=== PATIENT | male | born 1955 | race Caucasian/White ===

== ENCOUNTER 2016-09-02 05:02 | Emergency (ER) | payer MEDICARE ==
[2016-09-02] MEDS ORDERED: LIDOCAINE 2% VISCOUS SOLN 20 ML UDCUP PO ONE (06:28)
[2016-09-02] MEDS ORDERED: METOCLOPRAMIDE HCL ORAL SOLN 10 MG/10 ML UDCUP PO ONE (06:28)
[2016-09-02] MEDS ORDERED: MAG HYDROX/AL HYDROX/SIMETH SUSP 30 ML UDCUP PO ONE (06:28)
[2016-09-02 06:35] LABS: ABSOLUTE EOSINOPHILS # (AUTO) 0.1 10^3/uL (0.0-0.6); ABSOLUTE LYMPHOCYTES (AUTO) 0.7 10^3/uL (0.5-4.7); ABSOLUTE MONOCYTES (AUTO) 0.6 10^3/uL (0.1-1.4); ABSOLUTE NEUT (AUTO) 1.8 10^3/uL (1.7-8.2); BASOPHILS % (AUTO) 1.4 % (0-2); EOSINOPHILS % (AUTO) 2.6 % (0-6); HEMATOCRIT 37.2 % (37.9-51.0); HEMOGLOBIN 12.2 g/dL (13.5-17.0); HGB HCT DIFFERENCE -0.6; MEAN CORPUSCULAR HEMOGLOBIN 26.6 pg (27.0-33.4); MEAN CORPUSCULAR HGB CONC 32.8 g/dL (32.0-36.0); MEAN CORPUSCULAR VOLUME 81 fl (80-97); RED BLOOD COUNT 4.58 10^6/uL (4.35-5.55); RED CELL DISTRIBUTION WIDTH 14.3 % (11.5-14.0); WHITE BLOOD COUNT 3.2 10^3/uL (4.0-10.5)
[2016-09-02 06:40] LABS: PROTHROMBIN TIME 12.8 SEC (11.4-15.4)
[2016-09-02 06:42] LABS: ALANINE AMINOTRANSFERASE 31 U/L (21-72); ALBUMIN 3.4 g/dL (3.5-5.0); ALKALINE PHOSPHATASE 91 U/L (38-126); ANION GAP 13 (5-19); ASPARTATE AMINO TRANSFERASE 20 U/L (17-59); BILIRUBIN,TOTAL 0.3 mg/dL (0.2-1.3); BLOOD UREA NITROGEN 51 mg/dL (7-20); CALCIUM 9.1 mg/dL (8.4-10.2); CARBON DIOXIDE 28 mmol/L (22-30); CHLORIDE 94 mmol/L (98-107); CREATINE KINASE 61 U/L (55-170); CREATININE RESULT 2.11 mg/dL (0.52-1.25); GLUCOSE 391 mg/dL (75-110); LIPASE 103.6 U/L (23-300); POTASSIUM 4.3 mmol/L (3.6-5.0); SODIUM 134.5 mmol/L (137-145); TOTAL PROTEIN 6.3 g/dL (6.3-8.2)
[2016-09-02 06:54] LABS: CREATINE KINASE MB 0.51 ng/mL (<4.55); TROPONIN I 0.028 ng/mL
[2016-09-02 07:00] LABS: VENOUS BLOOD BASE EXCESS 1.7 mmol/L; VENOUS BLOOD HCO3 27.2 mmol/L (20-32); VENOUS BLOOD PCO2 46.2 mmHg (35-63); VENOUS BLOOD PH 7.39 (7.30-7.42)
[2016-09-02] MEDS ORDERED: NORMAL SALINE 1000 ML 500 ML IV ONE ×2 (07:17→08:42)
[2016-09-02] MEDS ORDERED: IPRATROPIUM/ALBUTEROL 0.5-2.5 MG/3 ML AMPUL NEB ONE (07:32)
[2016-09-02] MEDS ORDERED: OSELTAMIVIR PHOSPHATE 6 MG/1 ML SUSP 60 ML PO ONE (07:33)
--- NOTE | 2016-09-02 08:47 | EKG REPORT ---
SEVERITY:- OTHERWISE NORMAL ECG - SINUS RHYTHM ATRIAL PREMATURE COMPLEX : Confirmed by: Osmar Hart MD 02-Sep-2016 08:46:56
[2016-09-02] MEDS ORDERED: ALBUTEROL SULFATE HFA (90 MCG/PUFF) 8 GM MDI (1 MDI/ER DISP) IH ONE (10:16)
--- NOTE | 2016-09-02 10:17 | ER Document Report ---
ED General - General Chief Complaint: Sore Throat Stated Complaint: SORE THROAT,EAR PAIN TRAVEL OUTSIDE OF THE [place] IN LAST 30 DAYS: No - HPI Patient complains to provider of: throat pain ear pain feeling unwell Notes: Patient coming in for throat pain here pain feeling unwell information states started last 3 days. Patient states since recent travel from the [place] [facility] to the [facility] area. Patient has a history of a renal transplant some years ago patient is also on blood pressure medication. Otherwise patient is not very useful spars past medical history denies any fevers chills nausea vomiting. Patient with a possible near syncopal episode in triage according to nursing documentation. - Related Data Allergies/Adverse Reactions: No Known Allergies Allergy (Unverified 09/02/16 05:05) Past Medical History - Social History Smoking Status: Never Smoker Chew tobacco use (# tins/day): No Frequency of alcohol use: None Drug Abuse: None Family History: Reviewed & Not Pertinent Patient has suicidal ideation: No Renal/ Medical History: Denies: Hx Peritoneal Dialysis Review of Systems - Review of Systems Constitutional: No symptoms reported EENT: Eye pain, Throat pain Cardiovascular: Syncope Respiratory: No symptoms reported Gastrointestinal: No symptoms reported Genitourinary: No symptoms reported Male Genitourinary: No symptoms reported Musculoskeletal: No symptoms reported Skin: No symptoms reported Hematologic/Lymphatic: No symptoms reported Neurological/Psychological: No symptoms reported -: Yes All other systems reviewed and negative Physical Exam - Vital signs Vitals: Temp Pulse Resp BP Pulse Ox 97.8 F 64 20 133/56 H 93 09/02/16 05:12 09/02/16 05:12 09/02/16 05:12 09/02/16 05:12 09/02/16 05:12 Interpretation: Normal - General General appearance: Appears well, Alert - HEENT Head: Normocephalic, Atraumatic Eyes: Normal Conjunctiva: Normal Cornea: Normal Extraocular movements intact: Yes Eyelashes: Normal Pupils: PERRL Ears: Normal External canal: Normal Tympanic membrane: Normal Sinus: Normal Nasal: Normal Pharynx: Normal Neck: Normal - Respiratory Respiratory status: No respiratory distress Chest status: Nontender Breath sounds: Normal Chest palpation: Normal - Cardiovascular Rhythm: Regular Heart sounds: Normal auscultation Murmur: No - Abdominal Inspection: Normal Distension: No distension Bowel sounds: Normal Tenderness: Nontender Organomegaly: No organomegaly - Back Back: Normal, Nontender - Extremities General upper extremity: Normal inspection, Nontender, Normal color, Normal ROM , Normal temperature General lower extremity: Normal inspection, Nontender, Normal color, Normal ROM , Normal temperature, Normal weight bearing. No: Becky's sign - Neurological Neuro grossly intact: Yes Cognition: Normal Orientation: AAOx4 [place] Coma Scale Eye Opening: Spontaneous Desiree Coma Scale Verbal: Oriented [place] Coma Scale Motor: Obeys Commands Desiree Coma Scale Total: 15 Speech: Normal Motor strength normal: LUE, RUE, LLE, RLE Sensory: Normal - Psychological Associated symptoms: Normal affect, Normal mood - Skin Skin Temperature: Warm Skin Moisture: Dry Skin Color: Normal Course - Re-evaluation Re-evalutation: 09/02/16 12:25 Patient's workup today shows that he has influenza. Patient initially was orthostatic. After liter fluid patient feeling much better. Patient was ambulated around the ER no signs of hypoxia. Patient upon reevaluation stating that he still feels bad but better donated came into the ER. At this time does not seen criteria need for admission. Patient is has renal insufficiency patient is unaware if this is new or old. Possibly due to dehydration possibly due to the patient's kidney transplant. We are unable at this time. Obtain any old records from the patient's hospital as that the medical record office is closed. Patient states he will like to be discharged. At this time patient stable for discharge - Vital Signs Vital signs: Temp Pulse Resp BP Pulse Ox 97.8 F 73 15 183/86 H 98 09/02/16 05:12 09/02/16 07:54 09/02/16 09:01 09/02/16 09:01 09/02/16 09:01 - Laboratory Result Diagrams: 09/02/16 05:29 09/02/16 05:29 Laboratory results interpreted by me: 09/02/16 09/02/16 09/02/16 05:16 05:29 05:29 WBC 3.2 L Hgb 12.2 L Hct 37.2 L MCH 26.6 L RDW 14.3 H Monocytes % 19.0 H Sodium 134.5 L Chloride 94 L BUN 51 H Creatinine 2.11 H Est GFR ( Amer) 39 L Est GFR (Non-Af Amer) 32 L Glucose 391 H POC Glucose 380 H Albumin 3.4 L Discharge - Discharge Clinical Impression: Influenza B, Dehydration Condition: Good Disposition: HOME, SELF-CARE Instructions: Influenza ([facility]) [id number], Sore Throat ([facility]), Oral Narcotic Medication ([facility]) Additional Instructions: Examination today shows that your dehydrated and you also have influenza B. We will start you on Tamiflu. Please take as directed . I will give you medication for your throat pain. Please make sure you drink plenty water to stay hydrated Please use the inhaler that we gave you here in ER 2 puffs every 4 hours Prescriptions: Hydrocodone Bit/Acetaminophen [Hydrocodon-Acetaminophen 5-325] 1 each PO Q6 #20 tablet Oseltamivir Phosphate [Tamiflu 6 mg/1 ml Susp 60 ml] 30 mg PO BID #1 bottle Forms: Return to Work
[2016-09-02 10:52] VITALS: BP 135/71
== END 2016-09-02 10:41 | disposition home or self-care (01) ==
LOC: ER 05:02
DX: J11.1 Influenza due to unidentified influenza virus with other respiratory manifestations (principal); E86.0 Dehydration; J02.9 Acute pharyngitis, unspecified; H92.09 Otalgia, unspecified ear
CPT/HCPCS: 93005; 94640; 99284; 96360; 96361; 36415; 87070; 82553; 87880; 82962; 82550; 83690; 85025; 85610; 80053; 84484; 82803; 87804; 71020; 93010; J3490 ×2; A9270 ×3; J7030; J7620